=== PATIENT | female | born 1975 | race Hispanic/Latino ===

== ENCOUNTER 2019-08-20 23:41 | Inpatient (IN) | payer OTHER ==
[~2019-08-20] VITALS: Ht 160 cm; Wt 92.3 kg
[2019-08-21] MEDS ORDERED: ACETAMINOPHEN EXTRA STRENGTH 500 MG TABLET ONE (00:41)
[2019-08-21] MEDS ORDERED: CEFTRIAXONE SODIUM 2 GM VIAL ONE (00:41)
[2019-08-21] MEDS ORDERED: METHYLPREDNISOLONE SOD SUCC 40MG/ML 1ML ONE ×3 (00:41→21:25)
[2019-08-21] MEDS ORDERED: SODIUM CHLORIDE 0.9% 50 ML IV ONE (00:41)
[2019-08-21 00:51] LABS: BASOPHILS % (AUTO) 0.1 % (0.0-5.0); HEMATOCRIT 40.7 % (36-48); LYMPHOCYTES % (AUTO) 9.1 % (21.0-51.0); MEAN CORPUSCULAR HEMOGLOBIN 27.5 pg (27.0-33.0); MEAN CORPUSCULAR HGB CONC 32.7 g/dL (32.0-36.0); MEAN CORPUSCULAR VOLUME 84.3 fL (79-99); MONOCYTES % (AUTO) 1.9 % (3.0-13.0); NEUTROPHILS % (AUTO) 88.4 % (40.0-77.0); PLATELET COUNT (AUTO) 251 K/uL (130-400); RED BLOOD CELL COUNT(AUTO) 4.83 MIL/uL (4.00-5.50); RED CELL DISTRIBUTION WIDTH 13.2 % (11.0-15.5); WHITE BLOOD COUNT (AUTO) 11.9 K/uL (4.8-10.8)
[2019-08-21 01:08] LABS: CARBON DIOXIDE 22 mmol/L (21-32); CHLORIDE 99 mmol/L (101-111); CREATININE 0.8 mg/dL (0.5-1.5); GLOMERULAR FILTR. RATE CALC 83 mL/min (>60); GLUCOSE,RANDOM 284 mg/dL (70-105); POTASSIUM 3.5 mmol/L (3.5-5.1); SODIUM SERUM 137 mmol/L (136-145); UREA NITROGEN, BLOOD 7 mg/dL (7-18)
[2019-08-21 01:10] LABS: INR 0.96 (0.85-1.15); PROTHROMBIN TIME 10.4 SEC (9.6-11.6)
[2019-08-21 01:20] LABS: ALANINE AMINOTRANSFERASE 35 U/L (12-78); ALBUMIN 2.5 g/dL (3.5-5.0); ASPARTATE AMINOTRANSFERASE 24 U/L (10-37); BILIRUBIN,TOTAL 0.4 mg/dL (0.2-1.0); CREATINE KINASE, TOTAL 16 U/L (21-232); MYOGLOBIN 16 ng/mL (10-92); TOTAL PROTEIN, SERUM 8.1 g/dL (6.0-8.3); TROPONIN I < 0.04 ng/mL (0.00-0.06)
[2019-08-21 01:32] LABS: ABG BASE EXCESS -5.1 mmol/L (-2.0-3.0); ABG HCO3 18.5 mmol/L (21.0-28.0); ABG OXYGEN SATURATION 94.1 % (95.0-99.0); ABG PCO2 31 mmHg (32-45)
[2019-08-21] MEDS ORDERED: ONDANSETRON HCL 4 MG/2 ML VIAL IV PRN (05:15)
[2019-08-21] MEDS ORDERED: ERGOCALCIFEROL (VITAMIN D2) 50,000 UNIT CAPSULE PO ONE (05:15)
[2019-08-21] MEDS ORDERED: ACETAMINOPHEN 325 MG TAB PO PRN (05:15)
[2019-08-21] MEDS: CEFTRIAXONE SODIUM 1 GM IVP SCH ×2 (05:15→17:15)
[2019-08-21] MEDS ORDERED: LACTULOSE 20 GM/30 ML UDCUP PO PRN (05:15)
[2019-08-21] MEDS ORDERED: ERGOCALCIFEROL (VITAMIN D2) 50,000 UNIT CAPSULE ONE (05:31)
[2019-08-21] MEDS ORDERED: CEFTRIAXONE SODIUM 1 GM ONE ×2 (05:31→14:45)
[2019-08-21] MEDS ORDERED: DOXYCYCLINE HYCLATE 100 MG TABLET PO ONE ×2 (07:35→21:25)
[2019-08-21] MEDS ORDERED: FAMOTIDINE 20MG TAB 20 MG TAB ONE (07:35)
[2019-08-21] MEDS ORDERED: ENOXAPARIN SODIUM 40 MG/0.4 ML SYRINGE SQ ONE (07:36)
[2019-08-21] MEDS ORDERED: ZINC SULFATE 220 CAPSULE ONE (07:37)
[2019-08-21] MEDS ORDERED: ASCORBIC ACID 500 MG TAB ONE (07:37)
[2019-08-21] MEDS: METHYLPREDNISOLONE SOD SUCC 40MG/ML 1ML IVP SCH ×2 (08:00→16:00)
[2019-08-21] MEDS: ENOXAPARIN SODIUM 40 MG/0.4 ML SYRINGE SQ SCH (09:00)
[2019-08-21] MEDS: DOXYCYCLINE HYCLATE 100 MG TABLET PO SCH ×2 (09:00→21:00)
[2019-08-21] MEDS: FAMOTIDINE 20MG TAB 20 MG TAB PO SCH ×2 (09:00→21:00)
[2019-08-21] MEDS: ZINC SULFATE 220 CAPSULE PO SCH (09:00)
[2019-08-21] MEDS: ASCORBIC ACID 500 MG TAB PO SCH (09:00)
[2019-08-22] MEDS ORDERED: ACETAMINOPHEN 325 MG TAB ONE (00:48)
[2019-08-22] MEDS: CEFTRIAXONE SODIUM 1 GM IVP SCH ×2 (05:15→17:15)
[2019-08-22] MEDS ORDERED: METHYLPREDNISOLONE SOD SUCC 40MG/ML 1ML ONE ×3 (05:28→15:31)
[2019-08-22] MEDS ORDERED: CEFTRIAXONE SODIUM 1 GM ONE ×2 (05:35→15:31)
[2019-08-22] MEDS ORDERED: ONDANSETRON HCL 4 MG/2 ML VIAL ONE (05:44)
[2019-08-22 06:23] LABS: CRP QUANTITATIVE 274.5 mg/L (0.00-9.0)
[2019-08-22] MEDS ORDERED: DOXYCYCLINE HYCLATE 100 MG TABLET PO ONE ×2 (07:22→22:08)
[2019-08-22] MEDS ORDERED: ASCORBIC ACID 500 MG TAB ONE (07:23)
[2019-08-22] MEDS ORDERED: ZINC SULFATE 220 CAPSULE ONE (07:24)
[2019-08-22] MEDS ORDERED: ENOXAPARIN SODIUM 40 MG/0.4 ML SYRINGE SQ ONE (07:24)
[2019-08-22] MEDS: METHYLPREDNISOLONE SOD SUCC 40MG/ML 1ML IVP SCH ×3 (08:00→16:00)
[2019-08-22] MEDS: DOXYCYCLINE HYCLATE 100 MG TABLET PO SCH ×2 (09:00→21:00)
[2019-08-22] MEDS: ASCORBIC ACID 500 MG TAB PO SCH (09:00)
[2019-08-22] MEDS: ENOXAPARIN SODIUM 40 MG/0.4 ML SYRINGE SQ SCH (09:00)
[2019-08-22] MEDS: ZINC SULFATE 220 CAPSULE PO SCH (09:00)
[2019-08-22] MEDS: FAMOTIDINE 20MG TAB 20 MG TAB PO SCH ×2 (09:00→21:00)
[2019-08-22] MEDS ORDERED: FAMOTIDINE 20MG TAB 20 MG TAB ONE (09:58)
[2019-08-22] MEDS: INSULIN HUMULIN R 100 UNIT/ML 3ML SQ SCH ×3 (11:30→21:00)
--- NOTE | 2019-08-22 11:37 | NUR ---
CHART CHECK COMPLETED. Pt IS A 44 Y.O. FEMALE ADMITTED SECONDARY TO SUSPECTED COVID. Pt HAS NO REPORTED SIGNIFICANT PAST MEDICAL HISTORY AT THIS TIME. Pt CURRENTLY ON REGULAR TEXTURE,THIN LIQUID DIET. PLEASE REQUEST FORMAL SPEECH/SWALLOW EVALUATION IF Pt PRESENTS WITH +S/S OF ASPIRATION. Addendum: 08/22/19 at 1140 by NATIVIDAD KEITH, SPT ST Amended: Links added.
[2019-08-22] MEDS ORDERED: INSULIN HUMULIN R 100 UNIT/ML 3ML ONE ×3 (12:22→23:11)
[2019-08-22] MEDS ORDERED: FAMOTIDINE/PF 20 MG/2 ML VIAL IV ONE (22:07)
[2019-08-23] MEDS ORDERED: METHYLPREDNISOLONE SOD SUCC 125MG/2ML VIAL ONE (01:57)
[2019-08-23] MEDS ORDERED: ONDANSETRON HCL 4 MG/2 ML VIAL ONE (02:54)
[2019-08-23 04:00] VITALS: BP 124/76
[2019-08-23] MEDS: CEFTRIAXONE SODIUM 1 GM IVP SCH ×2 (05:24→15:56)
[2019-08-23] MEDS: INSULIN HUMULIN R 100 UNIT/ML 3ML SQ SCH ×4 (06:28→20:45)
--- NOTE | 2019-08-23 07:08 | NUR ---
Patient remained stable on 5 L/NC,bedside report given to incoming NOD using SBAR ,all questions answered.
[2019-08-23 08:00] VITALS: BP 121/71
[2019-08-23] MEDS: ENOXAPARIN SODIUM 40 MG/0.4 ML SYRINGE SQ SCH (08:38)
[2019-08-23] MEDS: DOXYCYCLINE HYCLATE 100 MG TABLET PO SCH ×2 (08:38→20:15)
[2019-08-23] MEDS: ZINC SULFATE 220 CAPSULE PO SCH (08:38)
[2019-08-23] MEDS: ASCORBIC ACID 500 MG TAB PO SCH (08:38)
[2019-08-23] MEDS: METHYLPREDNISOLONE SOD SUCC 40MG/ML 1ML IVP SCH ×3 (08:38→15:48)
[2019-08-23] MEDS: FAMOTIDINE 20MG TAB 20 MG TAB PO SCH (08:53)
[2019-08-23 09:26] LABS: CREATININE 0.7 mg/dL (0.5-1.5); POTASSIUM 4.5 mmol/L (3.5-5.1)
[2019-08-23 09:38] LABS: CRP QUANTITATIVE 72.6 mg/L (0.00-9.0)
[2019-08-23 11:00] VITALS: BP 125/80
[2019-08-23 16:22] VITALS: BP 123/74
[2019-08-23 20:00] VITALS: BP 126/75
[2019-08-23] MEDS ORDERED: FAMOTIDINE/PF 20 MG/2 ML VIAL IV ONE (20:39)
[2019-08-23] MEDS: FAMOTIDINE/PF 20 MG/2 ML VIAL IV SCH (20:47)
[2019-08-24] VITALS: BP 136/75
[2019-08-24] MEDS: METHYLPREDNISOLONE SOD SUCC 40MG/ML 1ML IVP SCH ×3 (00:12→16:24)
[2019-08-24 03:13] LABS: APPEARANCE,URINE Clear (CLEAR); BILIRUBIN,URINE Negative (NEGATIVE); COLOR,URINE Yellow (YELLOW); GLUCOSE, URINE (UA) >=1000 mg/dL (NEGATIVE); KETONES,URINE >=80 mg/dL (NEGATIVE); LEUKOCYTE ESTERASE ,URINE Negative (NEGATIVE); NITRATE,URINE Negative (NEGATIVE); OCCULT BLOOD,URINE Negative (NEGATIVE); PH,URINE 6.5 (5.0-8.0); PROTEIN,URINE Negative (NEGATIVE)
[2019-08-24 03:22] LABS: RBC,URINE 0-1 /HPF (0-1)
[2019-08-24 03:23] LABS: BACTERIA,URINE Rare /HPF (None Seen); SQUAMOUS EPITHELIAL CELL,UR 0-2 /HPF (0-2); YEAST,URINE BUDDING Few /HPF (None Seen)
[2019-08-24 04:00] VITALS: BP 125/76
[2019-08-24] MEDS: CEFTRIAXONE SODIUM 1 GM IVP SCH ×2 (04:18→16:24)
[2019-08-24] MEDS: INSULIN HUMULIN R 100 UNIT/ML 3ML SQ SCH ×2 (06:05→11:23)
[2019-08-24 06:45] LABS: CRP QUANTITATIVE 39.7 mg/L (0.00-9.0)
[2019-08-24 08:00] VITALS: BP 116/75
[2019-08-24] MEDS: DOXYCYCLINE HYCLATE 100 MG TABLET PO SCH ×2 (08:45→21:08)
[2019-08-24] MEDS: ASCORBIC ACID 500 MG TAB PO SCH (08:45)
[2019-08-24] MEDS: FAMOTIDINE/PF 20 MG/2 ML VIAL IV SCH ×2 (08:45→21:08)
[2019-08-24] MEDS: ZINC SULFATE 220 CAPSULE PO SCH (08:45)
[2019-08-24] MEDS: ENOXAPARIN SODIUM 40 MG/0.4 ML SYRINGE SQ SCH (08:45)
[2019-08-24 11:00] VITALS: BP 131/83
[2019-08-24] MEDS ORDERED: INSULIN HUMULIN R 100 UNIT/ML 3ML SQ SCH (11:30)
[2019-08-24 15:00] VITALS: BP 132/83
[2019-08-24] MEDS: INSULIN LISPRO 100 UNIT/ML 3ML SQ SCH ×3 (16:23→21:07)
[2019-08-24] MEDS: ACETAMINOPHEN 325 MG TAB PO PRN (16:25)
[2019-08-24 20:51] VITALS: BP 131/77
[2019-08-24] MEDS ORDERED: INSULIN GLARGINE 100 UNITS/ML 10 ML VIAL SQ SCH (21:00)
[2019-08-25 00:01] VITALS: BP 119/76
[2019-08-25] MEDS: METHYLPREDNISOLONE SOD SUCC 40MG/ML 1ML IVP SCH ×4 (00:08→23:10)
[2019-08-25 03:49] VITALS: BP 127/78
[2019-08-25] MEDS: CEFTRIAXONE SODIUM 1 GM IVP SCH (04:51)
[2019-08-25 05:29] LABS: BASOPHILS % (AUTO) 0.4 % (0.0-5.0); HEMATOCRIT 39.8 % (36-48); LYMPHOCYTES % (AUTO) 15.7 % (21.0-51.0); MEAN CORPUSCULAR HEMOGLOBIN 27.2 pg (27.0-33.0); MEAN CORPUSCULAR HGB CONC 32.4 g/dL (32.0-36.0); MEAN CORPUSCULAR VOLUME 83.8 fL (79-99); MONOCYTES % (AUTO) 3.7 % (3.0-13.0); NEUTROPHILS % (AUTO) 75.6 % (40.0-77.0); PLATELET COUNT (AUTO) 335 K/uL (130-400); RED BLOOD CELL COUNT(AUTO) 4.75 MIL/uL (4.00-5.50); RED CELL DISTRIBUTION WIDTH 12.6 % (11.0-15.5); WHITE BLOOD COUNT (AUTO) 8.4 K/uL (4.8-10.8)
[2019-08-25 06:01] LABS: ALANINE AMINOTRANSFERASE 24 U/L (12-78); ALBUMIN 2.2 g/dL (3.5-5.0); ASPARTATE AMINOTRANSFERASE 14 U/L (10-37); BILIRUBIN,TOTAL 0.3 mg/dL (0.2-1.0); CARBON DIOXIDE 23 mmol/L (21-32); CHLORIDE 98 mmol/L (101-111); CREATININE 0.7 mg/dL (0.5-1.5); GLOMERULAR FILTR. RATE CALC 97 mL/min (>60); GLUCOSE,RANDOM 387 mg/dL (70-105); POTASSIUM 4.8 mmol/L (3.5-5.1); SODIUM SERUM 132 mmol/L (136-145); TOTAL PROTEIN, SERUM 7.2 g/dL (6.0-8.3); UREA NITROGEN, BLOOD 27 mg/dL (7-18)
[2019-08-25] MEDS: INSULIN LISPRO 100 UNIT/ML 3ML SQ SCH ×6 (06:41→20:59)
[2019-08-25 07:00] VITALS: BP 112/72
[2019-08-25] MEDS: ASCORBIC ACID 500 MG TAB PO SCH (08:16)
[2019-08-25] MEDS: ZINC SULFATE 220 CAPSULE PO SCH (08:16)
[2019-08-25] MEDS: FAMOTIDINE/PF 20 MG/2 ML VIAL IV SCH ×2 (08:16→20:53)
[2019-08-25] MEDS: DOXYCYCLINE HYCLATE 100 MG TABLET PO SCH (08:16)
[2019-08-25] MEDS: ENOXAPARIN SODIUM 40 MG/0.4 ML SYRINGE SQ SCH (08:18)
[2019-08-25] MEDS: ACETAMINOPHEN 325 MG TAB PO PRN (08:49)
[2019-08-25 11:00] VITALS: BP 114/66
[2019-08-25] MEDS ORDERED: REMDESIVIR (INVESTIGATIONAL) 200 MG in SODIUM CHLORIDE 0.9% 250 ML IV ONE (11:30)
[2019-08-25] MEDS: PHARMACY COMMUNICATION** REMDESIVIR ORDER MISC SCH ×2 (11:45→19:45)
--- NOTE | 2019-08-25 11:48 | NUR ---
ROSENDA PLAN PATIENT IN COVID UNIT. CALLED ROOM NO ANSWER. CALLED DAUGHTER ON FACE SHEET JANNETH MENA TYRESE Gambino WORKING NUMBER [phone]. KELVIN WILL CONTINUE TO FOLLOW. PATIENT ON 5 02 WEANING. Addendum: 08/25/19 at 1150 by MYCHAL CASTRO RN CM Amended: Links added.
--- NOTE | 2019-08-25 13:00 | NUR ---
DR. REAVES IS MAKING HIS ROUNDS 0UTSIDE PATIENT'S ROOM. INFORMED MD THAT PATIENT HAD EPISODE OF SOB THIS MORNING THAT PROMPTED ME TO INCREASE HER O2 FLOW BACK TO 5L. MD ORDERED FOR CONVALESCENT PLASMA AND REMDESIVIR. PATIENT IS CURRENTLY ASLEEP.
[2019-08-25 15:00] VITALS: BP 112/63
[2019-08-25] MEDS ORDERED: INSULIN LISPRO 100 UNIT/ML 3ML SQ SCH (17:00)
[2019-08-25 20:27] VITALS: BP 126/77
[2019-08-25] MEDS: INSULIN GLARGINE 100 UNITS/ML 10 ML VIAL SQ SCH (20:58)
--- NOTE | 2019-08-25 23:00 | NUR ---
First convalescent plasma therapy was completed and no adverse reaction noted.Patient remained stable.
[2019-08-26] VITALS (7 sets, daily range): BP systolic 118–133; BP diastolic 66–85
--- NOTE | 2019-08-26 02:32 | NUR ---
Patient pending to be transfused with 2nd plasma ,endorsed care to nurse Pascal using SBAR,all questions answered.
[2019-08-26] MEDS: PHARMACY COMMUNICATION** REMDESIVIR ORDER MISC SCH ×3 (03:45→19:45)
[2019-08-26] MEDS: INSULIN LISPRO 100 UNIT/ML 3ML SQ SCH ×7 (06:41→20:32)
[2019-08-26] MEDS: METHYLPREDNISOLONE SOD SUCC 40MG/ML 1ML IVP SCH ×2 (08:05→17:33)
[2019-08-26] MEDS: ENOXAPARIN SODIUM 40 MG/0.4 ML SYRINGE SQ SCH (08:05)
[2019-08-26] MEDS: FAMOTIDINE/PF 20 MG/2 ML VIAL IV SCH ×2 (08:05→20:19)
[2019-08-26] MEDS: ASCORBIC ACID 500 MG TAB PO SCH (08:05)
[2019-08-26] MEDS: ZINC SULFATE 220 CAPSULE PO SCH (08:05)
[2019-08-26] MEDS ORDERED: REMDESIVIR (INVESTIGATIONAL) 100 MG in SODIUM CHLORIDE 0.9% 250 ML IV SCH (11:30)
[2019-08-26] MEDS: INSULIN GLARGINE 100 UNITS/ML 10 ML VIAL SQ SCH (20:31)
[2019-08-27] MEDS: METHYLPREDNISOLONE SOD SUCC 40MG/ML 1ML IVP SCH ×4 (00:10→20:54)
[2019-08-27] MEDS: PHARMACY COMMUNICATION** REMDESIVIR ORDER MISC SCH ×3 (01:35→19:24)
[2019-08-27 04:40] VITALS: BP 109/78
[2019-08-27 05:21] LABS: BASOPHILS % (AUTO) 0.5 % (0.0-5.0); EOSINOPHILS % (AUTO) 2.8 % (0.0-8.0); HEMATOCRIT 35.8 % (36-48); MEAN CORPUSCULAR HEMOGLOBIN 28.4 pg (27.0-33.0); MEAN CORPUSCULAR HGB CONC 32.4 g/dL (32.0-36.0); MEAN CORPUSCULAR VOLUME 87.5 fL (79-99); MONOCYTES % (AUTO) 7.4 % (3.0-13.0); PLATELET COUNT (AUTO) 190 K/uL (130-400); RED BLOOD CELL COUNT(AUTO) 4.09 MIL/uL (4.00-5.50); RED CELL DISTRIBUTION WIDTH 14.5 % (11.0-15.5); WHITE BLOOD COUNT (AUTO) 9.6 K/uL (4.8-10.8)
[2019-08-27 05:52] LABS: CREATININE 0.8 mg/dL (0.5-1.5); CRP QUANTITATIVE 45.7 mg/L (0.00-9.0)
[2019-08-27] MEDS: INSULIN LISPRO 100 UNIT/ML 3ML SQ SCH ×6 (06:19→18:35)
--- NOTE | 2019-08-27 06:20 | NUR ---
BS/K+ BS 351, POTASSIUM 3.0 PAGE TO MD BALDWIN PER ANSWERING SERVICE AWAITING RETURN CALL.
[2019-08-27 08:47] VITALS: BP 125/72
[2019-08-27] MEDS: ASCORBIC ACID 500 MG TAB PO SCH (09:14)
[2019-08-27] MEDS: FAMOTIDINE/PF 20 MG/2 ML VIAL IV SCH ×2 (09:14→20:54)
[2019-08-27] MEDS: ENOXAPARIN SODIUM 40 MG/0.4 ML SYRINGE SQ SCH (09:15)
[2019-08-27] MEDS: ZINC SULFATE 220 CAPSULE PO SCH (09:15)
[2019-08-27 11:36] VITALS: BP 108/70
[2019-08-27 16:08] VITALS: BP 125/66
[2019-08-27] MEDS ORDERED: POTASSIUM CHLORIDE 20 MEQ ERTAB PO SCH (18:30)
[2019-08-27 20:00] VITALS: BP 111/70
--- NOTE | 2019-08-27 20:04 | NUR ---
CM NOTE SW attempted to contact patient's daughter, Emily Caraballo at number listed on face sheet but it was disconnected. SW also attempted to call patient's cell number but there was no answer.
[2019-08-27] MEDS: INSULIN GLARGINE 100 UNITS/ML 10 ML VIAL SQ SCH (20:52)
[2019-08-27] MEDS: INSULIN HUMULIN R 100 UNIT/ML 3ML SQ SCH (20:54)
[2019-08-28] VITALS (7 sets, daily range): BP systolic 89–129; BP diastolic 55–70
[2019-08-28] MEDS: PHARMACY COMMUNICATION** REMDESIVIR ORDER MISC SCH ×3 (03:45→19:40)
[2019-08-28] MEDS: METHYLPREDNISOLONE SOD SUCC 40MG/ML 1ML IVP SCH ×2 (06:32→13:57)
[2019-08-28] MEDS: INSULIN HUMULIN R 100 UNIT/ML 3ML SQ SCH (06:35)
[2019-08-28] MEDS: INSULIN LISPRO 100 UNIT/ML 3ML SQ SCH ×6 (06:36→21:44)
[2019-08-28 07:18] LABS: BASOPHILS % (AUTO) 0.5 % (0.0-5.0); HEMATOCRIT 43.4 % (36-48); LYMPHOCYTES % (AUTO) 18.5 % (21.0-51.0); MEAN CORPUSCULAR HEMOGLOBIN 27.1 pg (27.0-33.0); MEAN CORPUSCULAR HGB CONC 32.3 g/dL (32.0-36.0); MEAN CORPUSCULAR VOLUME 83.9 fL (79-99); MONOCYTES % (AUTO) 5.7 % (3.0-13.0); NEUTROPHILS % (AUTO) 70.6 % (40.0-77.0); PLATELET COUNT (AUTO) 354 K/uL (130-400); RED BLOOD CELL COUNT(AUTO) 5.17 MIL/uL (4.00-5.50); RED CELL DISTRIBUTION WIDTH 12.7 % (11.0-15.5); WHITE BLOOD COUNT (AUTO) 9.5 K/uL (4.8-10.8)
[2019-08-28 07:33] LABS: CRP QUANTITATIVE 4.3 mg/L (0.00-9.0)
[2019-08-28 07:37] LABS: HEMOGLOBIN A1C 11.2 % (4.0-6.0)
[2019-08-28] MEDS: ASCORBIC ACID 500 MG TAB PO SCH (08:00)
[2019-08-28] MEDS: ZINC SULFATE 220 CAPSULE PO SCH (08:00)
[2019-08-28] MEDS: FAMOTIDINE/PF 20 MG/2 ML VIAL IV SCH ×2 (08:00→20:41)
[2019-08-28] MEDS: ENOXAPARIN SODIUM 40 MG/0.4 ML SYRINGE SQ SCH (08:07)
--- NOTE | 2019-08-28 13:10 | NUR ---
RDSCREEN - LOS X 7 Pt admitted with severe COVID-19 infection. Tolerating 75gm CCd with no report of GI distress. Good PO intake at 100%. BG 353, A1C 11.2, Alb 2.2, Vitamin C, ZnSO4 supplementation in place. Possible new onset DM per EMR. Obesity Class II (BMI 36.6). Recommend 60gm CCD Recommend 60mL ProMod BID RD to follow up with possible Diabetes/wt management nutrition education. Please notify as additional nutrition concerns arise. Thank you.
[2019-08-28] MEDS: INSULIN GLARGINE 100 UNITS/ML 10 ML VIAL SQ SCH (21:45)
--- NOTE | 2019-08-28 21:48 | NUR ---
BS 368 SOLANGE BUSBY NOTIFIED OF BS 368, ORDERS RECEIVED TO CHANGE ACCUCHECKS TO Q4 WITH SS2 LISPRO.
[2019-08-29] MEDS: PHARMACY COMMUNICATION** REMDESIVIR ORDER MISC SCH ×4 (02:01→22:08)
[2019-08-29 03:24] VITALS: BP 98/63
[2019-08-29] MEDS: INSULIN LISPRO 100 UNIT/ML 3ML SQ SCH ×9 (04:00→22:06)
--- NOTE | 2019-08-29 05:40 | NUR ---
PM SHIFT SUMMARY PT A&OX3 ABLE TO MAKE NEEDS KNOWN. ON 0.5L NC SAT 97%, 02 REMOVED AND ABLE TO MAINTAIN 02 SAT THROUGHOUT THE NIGHT 93-97% RA DENIES SOB. NO ACUTE CHANGES FROM BASELINE SHIFT ASSESSMENT/SIGNIFICANT EVENT.
[2019-08-29 08:00] VITALS: BP 95/61
[2019-08-29] MEDS: ZINC SULFATE 220 CAPSULE PO SCH (09:43)
[2019-08-29] MEDS: ASCORBIC ACID 500 MG TAB PO SCH (09:44)
[2019-08-29] MEDS: DEXAMETHASONE 4 MG TAB PO SCH (09:44)
[2019-08-29] MEDS: FAMOTIDINE/PF 20 MG/2 ML VIAL IV SCH ×2 (09:44→21:03)
[2019-08-29] MEDS: ENOXAPARIN SODIUM 40 MG/0.4 ML SYRINGE SQ SCH (09:45)
[2019-08-29 11:00] VITALS: BP 101/56
[2019-08-29 15:00] VITALS: BP 97/63
[2019-08-29 19:02] VITALS: BP 109/69
[2019-08-29] MEDS: INSULIN GLARGINE 100 UNITS/ML 10 ML VIAL SQ SCH (22:07)
[2019-08-29 23:01] VITALS: BP 96/62
[2019-08-30 03:37] VITALS: BP 103/58
[2019-08-30 05:22] LABS: BASOPHILS % (AUTO) 0.2 % (0.0-5.0); EOSINOPHILS % (AUTO) 0.5 % (0.0-8.0); HEMATOCRIT 40.9 % (36-48); LYMPHOCYTES % (AUTO) 34.2 % (21.0-51.0); MEAN CORPUSCULAR HEMOGLOBIN 27.5 pg (27.0-33.0); MEAN CORPUSCULAR HGB CONC 32.8 g/dL (32.0-36.0); MEAN CORPUSCULAR VOLUME 83.8 fL (79-99); MONOCYTES % (AUTO) 6.3 % (3.0-13.0); NEUTROPHILS % (AUTO) 56.4 % (40.0-77.0); PLATELET COUNT (AUTO) 336 K/uL (130-400); RED BLOOD CELL COUNT(AUTO) 4.88 MIL/uL (4.00-5.50); WHITE BLOOD COUNT (AUTO) 11.1 K/uL (4.8-10.8)
[2019-08-30 05:57] LABS: CREATININE 0.6 mg/dL (0.5-1.5); CRP QUANTITATIVE 6.3 mg/L (0.00-9.0); POTASSIUM 3.4 mmol/L (3.5-5.1)
[2019-08-30] MEDS: INSULIN LISPRO 100 UNIT/ML 3ML SQ SCH ×4 (06:39→11:30)
[2019-08-30 08:00] VITALS: BP 102/67
[2019-08-30] MEDS: DEXAMETHASONE 4 MG TAB PO SCH (09:03)
[2019-08-30] MEDS: ASCORBIC ACID 500 MG TAB PO SCH (09:03)
[2019-08-30] MEDS: FAMOTIDINE/PF 20 MG/2 ML VIAL IV SCH (09:04)
[2019-08-30] MEDS: ZINC SULFATE 220 CAPSULE PO SCH (09:04)
[2019-08-30] MEDS: ENOXAPARIN SODIUM 40 MG/0.4 ML SYRINGE SQ SCH (09:05)
[2019-08-30 11:00] VITALS: BP 102/54
[2019-08-30] MEDS ORDERED: DEXA6TAB PO (13:14)
[2019-08-30] MEDS ORDERED: INSU3INS3 SQ (13:14)
[2019-08-30] MEDS ORDERED: METF-444 PO (13:14)
[2019-08-30] MEDS ORDERED: GLIP5TAB11 PO (13:14)
[2019-08-30] MEDS ORDERED: APIX2.5T PO (13:14)
[2019-08-30] MEDS ORDERED: INSULIN LISPRO 100 UNIT/ML 3ML SQ SCH (17:00)
[2019-08-30] MEDS ORDERED: INSULIN GLARGINE 100 UNITS/ML 10 ML VIAL SQ SCH (21:00)
[2019-08-30] MEDS ORDERED: APIXABAN 2.5 MG TABLET PO SCH (21:00)
== END 2019-08-30 16:00 | disposition home or self-care (01) | DRG 177 ==
LOC: EDH 23:41 → EDHIP 08-21 05:08 → 2DH 08-23 04:17
PROVIDERS: ADMIT Hospitalist; ATTEND Hospitalist
PROC: 30233K1 Transfusion of Nonautologous Frozen Plasma into Peripheral Vein, Percutaneous Approach (ICD-10-PCS; principal; 2019-08-21)
DX: U07.1 COVID-19 (principal); J96.01 Acute respiratory failure with hypoxia; J12.89 Other viral pneumonia; E87.6 Hypokalemia; Z68.36 Body mass index [BMI] 36.0-36.9, adult; E66.9 Obesity, unspecified; E11.65 Type 2 diabetes mellitus with hyperglycemia; T38.0X5A Adverse effect of glucocorticoids and synthetic analogues, initial encounter; Y92.89 Other specified places as the place of occurrence of the external cause; Z79.84 Long term (current) use of oral hypoglycemic drugs
CPT/HCPCS: 0099U; 36415; 36430; 36600; 71045; 80048; 80053; 81001; 82550; 82728; 82803; 82948; 83036; 83605; 83615; 83874; 84145; 84484; 85025; 85378; 85610; 85730; 86140; 86900; 86901; 86927; 87040; 87071; 87077; 87088; 87186; 87205; 93005; 99291; G0378; J0696; J1650; J1815; J2405; J2920; J2930; J3490; J8540; P9017; U0003

== ENCOUNTER 2020-06-14 11:53 | Emergency (ER) | payer OTHER ==
[~2020-06-14 11:53] MED LIST: APIX2.5T PO; DEXA6TAB PO; GLIP5TAB11 PO; INSU3INS3 SQ; METF-444 PO
[2020-06-14] MEDS ORDERED: LORAZEPAM 2 MG/ML 1 ML VIAL ONE (12:18)
[2020-06-14 12:36] LABS: BASOPHILS % (AUTO) 0.7 % (0.0-5.0); EOSINOPHILS % (AUTO) 1.9 % (0.0-8.0); HEMATOCRIT 42.5 % (36-48); LYMPHOCYTES % (AUTO) 33.7 % (21.0-51.0); MEAN CORPUSCULAR HEMOGLOBIN 28.1 pg (27.0-33.0); MEAN CORPUSCULAR HGB CONC 32.7 g/dL (32.0-36.0); MEAN CORPUSCULAR VOLUME 85.9 fL (79-99); MONOCYTES % (AUTO) 4.2 % (3.0-13.0); NEUTROPHILS % (AUTO) 59.1 % (40.0-77.0); PLATELET COUNT (AUTO) 255 K/uL (130-400); RED BLOOD CELL COUNT(AUTO) 4.95 MIL/uL (4.00-5.50); RED CELL DISTRIBUTION WIDTH 12.6 % (11.0-15.5); WHITE BLOOD COUNT (AUTO) 7.5 K/uL (4.8-10.8)
[2020-06-14 12:45] LABS: CREATININE 0.7 mg/dL (0.5-1.5); POTASSIUM 3.8 mmol/L (3.5-5.1)
[2020-06-14 12:50] LABS: ALBUMIN 3.4 g/dL (3.5-5.0); BILIRUBIN,TOTAL 0.5 mg/dL (0.2-1.0); TOTAL PROTEIN, SERUM 7.5 g/dL (6.0-8.3)
[2020-06-14] MEDS ORDERED: INSULIN HUMULIN R 100 UNIT/ML 3ML ONE (13:24)
[2020-06-14 13:26] LABS: APPEARANCE,URINE Clear (CLEAR); BILIRUBIN,URINE Negative (NEGATIVE); COLOR,URINE Yellow (YELLOW); GLUCOSE, URINE (UA) >=1000 mg/dL (NEGATIVE); KETONES,URINE 15 mg/dL (NEGATIVE); LEUKOCYTE ESTERASE ,URINE Negative (NEGATIVE); NITRATE,URINE Negative (NEGATIVE); OCCULT BLOOD,URINE Negative (NEGATIVE); PROTEIN,URINE Negative (NEGATIVE)
[2020-06-14 13:29] LABS: HCG,QUAL RESULT NEGATIVE (NEGATIVE)
[2020-06-14 13:37] LABS: BACTERIA,URINE None Seen /HPF (None Seen); RBC,URINE 0-1 /HPF (0-1); WBC,URINE 0-1 /HPF (0-1); YEAST,URINE BUDDING Rare /HPF (None Seen)
== END 2020-06-14 14:19 | disposition home or self-care (01) ==
LOC: EDH 11:53
DX: E11.9 Type 2 diabetes mellitus without complications (principal); R55 Syncope and collapse; F41.0 Panic disorder [episodic paroxysmal anxiety]; E66.9 Obesity, unspecified
CPT/HCPCS: 36415; 71045; 80053; 81001; 81025; 82948; 84484; 85025; 93005; 96361; 96374; 96375; 99285; J1815; J2060

== ENCOUNTER 2022-02-16 23:48 | Emergency (ER) | payer OTHER ==
[~2022-02-16] VITALS: Ht 160 cm; Wt 94.8 kg
[2022-02-17 00:36] LABS: BASOPHILS % (AUTO) 0.7 % (0.0-5.0); EOSINOPHILS % (AUTO) 2.6 % (0.0-8.0); HEMATOCRIT 44.6 % (36-48); LYMPHOCYTES % (AUTO) 46.1 % (21.0-51.0); MEAN CORPUSCULAR HEMOGLOBIN 28.2 pg (27.0-33.0); MEAN CORPUSCULAR HGB CONC 33.2 g/dL (32.0-36.0); MONOCYTES % (AUTO) 4.3 % (3.0-13.0); PLATELET COUNT (AUTO) 281 K/uL (130-400); RED BLOOD CELL COUNT(AUTO) 5.25 MIL/uL (4.00-5.50); RED CELL DISTRIBUTION WIDTH 12.5 % (11.0-15.5); WHITE BLOOD COUNT (AUTO) 8.9 K/uL (4.8-10.8)
[2022-02-17 00:46] LABS: CREATININE 0.8 mg/dL (0.5-1.5); POTASSIUM 3.5 mmol/L (3.5-5.1)
[2022-02-17 00:51] LABS: ALBUMIN 3.4 g/dL (3.5-5.0); TOTAL PROTEIN, SERUM 8.3 g/dL (6.0-8.3)
[2022-02-17 00:55] LABS: APPEARANCE,URINE CLEAR (CLEAR); BILIRUBIN,URINE NEGATIVE (NEGATIVE); COLOR,URINE LIGHT-YELLOW (YELLOW); GLUCOSE, URINE (UA) >=1000 mg/dL (NEGATIVE); KETONES,URINE 5 mg/dL (NEGATIVE); LEUKOCYTE ESTERASE ,URINE NEGATIVE Leu/uL (NEGATIVE); NITRATE,URINE NEGATIVE (NEGATIVE); OCCULT BLOOD,URINE NEGATIVE (NEGATIVE); PROTEIN,URINE NEGATIVE (NEGATIVE); UROBILINOGEN,URINE 0.2 mg/dL (0.2-1.0)
[2022-02-17 01:00] LABS: RBC,URINE 0-1 /HPF (0-1); SQUAMOUS EPITHELIAL CELL,UR RARE /HPF (0-2); WBC,URINE 0-1 /HPF (0-1)
[2022-02-17] MEDS ORDERED: SOLU-MEDROL 125MG VIAL IVP STA (04:00)
[2022-02-17] MEDS ORDERED: INSULIN HUMULIN R 100 UNIT/ML 3ML IV STA (04:00)
[2022-02-17] MEDS ORDERED: PRED20TA3 PO (04:10)
[2022-02-17] MEDS ORDERED: METF-444 PO (04:10)
[2022-02-17 04:26] VITALS: BP 107/75
== END 2022-02-17 04:43 | disposition home or self-care (01) ==
LOC: EDH 23:48
DX: G51.0 Bell's palsy (principal)
CPT/HCPCS: 99285; 80053; 85025; 82948 ×2; 81001; 81025; 36415; 96374; 70450; 96375; 93005; J1815; J2930